=== PATIENT | female | born 2000 | race Caucasian/White ===

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

== ENCOUNTER → 2020-12-15 | Outpatient (CLI) | payer OTHER ==
--- NOTE | 2020-12-16 08:18 | US ---
EXAMINATION TYPE: Transabdominal DATE OF EXAM: 12/15/2020 3:51 PM COMPARISON: NONE CLINICAL HISTORY: Z36 confirm dates. dates EXAM PERFORMED: Transabdominal (TA) EXAM MEASUREMENTS: GESTATIONAL AGE / DATING Physician Established: Not yet established Dates by LMP: (10 weeks/4 days) EDC: 07/09/2021 Dates by First Scan: No previous this is first scan Dates by Current Scan for: ( 9 weeks/3 days) EDC: 07/17/2021 MATERNAL ANATOMY Uterus: 11.0 x 9.2 x 6.2 cm Right Ovary: 3.4 x 1.8 x 1.3 cm Left Ovary: 3.8 x 2.4 x 1.8 cm Post CDS / Adnexa: no free fluid Presence of free fluid: no Presence of corpus luteal cyst: left ovary = 1.9 x 1.8 x 1.5 cm Presence of subchorionic bleed: no GESTATION / SURVEY CRL: 2.6 cm (9 weeks/3 days) MSD: seen, not measured Yolk Sac (normal less than 6mm): 3.9 mm Heart Rate: 166 bpm Rhythm: Normal IUP: Viable IUP Age Appropriate Anatomy Cord Insertion: Visualized Limbs: Visualized Date of LMP: 10/02/2020, Beta HcG (if available): Not available at this time Single live IUP measuring 9 weeks 3 days. IMPRESSION: Single viable intrauterine corresponding to ultrasound age 9 weeks 3 days with estimated da te of delivery 07/17/2021
== END | disposition home or self-care (01) ==
LOC: RADUSWWP 15:28
PROVIDERS: ATTEND Obstetrics & Gynecology
DX: Z36.89 Encounter for other specified antenatal screening (principal); Z3A.09 9 weeks gestation of pregnancy
CPT/HCPCS: 76801

== ENCOUNTER 2021-07-10 06:00 | Inpatient (IN) | payer OTHER ==
--- NOTE | 2021-07-09 10:59 | P.HPOB ---
History of Present Illness H&P Date: 07/09/21 Chief Complaint: Requested induction of labor. This patient is a pleasant 20 yr female EDC 07/17/2021 estimated gestation age 39 0/7 weeks who presents to L&D for requested induction of labor. She has a brother with a cardiac defect, therefore she had a Level III ultrasound and cardiac echo (normal). Kierra is uncomfortable and requesting induction of labor at this time. Review of Systems Genitourinary: Reports Menstruation: Reports amenorrhea Past Medical History Past Medical History: No Reported History History of Any Multi-Drug Resistant Organisms: None Reported Additional Past Surgical History / Comment(s): Patient had a cyst removed from the lower part of her spine in 2017 Past Anesthesia/Blood Transfusion Reactions: No Reported Reaction Past Psychological History: No Psychological Hx Reported Smoking Status: Former smoker Past Alcohol Use History: None Reported Past Drug Use History: None Reported - Past Family History Mother Family Medical History: No Reported History Medications and Allergies Home Medications Medication Instructions Recorded Confirmed Type Ibuprofen [Motrin] 600 mg PO Q6HR PRN #40 tab 11/18/19 Rx Allergies Allergy/AdvReac Type Severity Reaction Status Date / Time codeine Allergy Rash/Hives Verified 11/17/19 06:04 Exam - OBG Physical Exam Abdomen: bowel sounds normal, no diffuse tenderness, no bruit present, no gua rding noted, no hepatomegaly, no splenomegaly, no mass Vulva: both: normal Vagina: normal moisture, no discharge Cervix: no lesion (Cervix in office 2cm/uneffaced. ), no discharge Uterus: enlarged (Fundal height is 38cm) Results Labs: A positive, Rubella Immune, RPR-HIV-Hep B negative, GBS negative, cardiac echo normal. Glucola 100 Assessment and Plan Assessment: This is a pleasant 20 yr female 30 0/7 wks who presents requesting induction of labor. Plan is induction of labor and anticipate normal vaginal delivery. (1) 39 weeks gestation of Status: Acute Code(s): Z3A.39 - 39 WEEKS GESTATION OF SNOMED Code(s): 56008114 (2) Elective induction of labor planned Status: Acute Code(s): SEE9518 - SNOMED Code(s): 016349608
[2021-07-10] MEDS ORDERED: OXYTOCIN 30 UNITS/500 ML NS 30 UNIT in SALINE 1 500ML.BAG IV SCH ×2 (06:17→09:25)
[2021-07-10] MEDS ORDERED: OXYTOCIN 10 UNIT/ML 1 ML VIAL IM PRN (06:17)
[2021-07-10] MEDS ORDERED: METHYLERGONOVINE 0.2 MG/ML 1 ML AMP IM PRN (06:17)
[2021-07-10] MEDS ORDERED: CARBOPROST TROMETHAMINE 250 MCG/ML 1 ML AMP IM PRN (06:17)
[2021-07-10] MEDS ORDERED: LIDOCAINE 1% (PF) 10 MG/ML (30 ML SDV) SQ PRN (06:17)
[2021-07-10] MEDS ORDERED: TERBUTALINE 1 MG/ML VIAL SQ PRN (06:17)
[2021-07-10] MEDS: LACTATED RINGERS 1,000 ML IV SCH ×2 (06:25→08:30)
[2021-07-10 06:28] LABS: Basophils # (A) 0.1 k/uL (0-0.2); Basophils % (A) 1 %; Eosinophils # (A) 0.1 k/uL (0-0.7); Eosinophils % (A) 1 %; HCT 36.9 % (34.0-46.0); Lymphocytes # (A) 2.1 k/uL (1.0-4.8); Lymphocytes % (A) 21 %; MCH 28.5 pg (25.0-35.0); MCHC 32.6 g/dL (31.0-37.0); MCV 87.6 fL (80.0-100.0); Mean Platelet Volume 8.4; Monocytes # (A) 0.6 k/uL (0-1.0); Monocytes % (A) 6 %; Neutrophils # (A) 7.1 k/uL (1.3-7.7); Neutrophils % (A) 70 %; Platelet Count 329 k/uL (150-450); RBC 4.21 m/uL (3.80-5.40); RDW 13.9 % (11.5-15.5); WBC 10.2 k/uL (4.0-11.0)
[2021-07-10] MEDS ORDERED: fentaNYL (PF) 50 MCG/ML 5 ML AMP ONE (08:04)
[2021-07-10] MEDS ORDERED: ROPIVACAINE 5MG/ML 20ML VIAL ONE (08:04)
[2021-07-10] MEDS ORDERED: SODIUM CHLORIDE 0.9% 100 ML BAG ONE (08:04)
[2021-07-10] MEDS ORDERED: LANOLIN CREAM 5 GM TUBE TOPICAL PRN (09:25)
[2021-07-10] MEDS ORDERED: BENZOCAINE/MENTHOL SPRAY 1 GM/SPRAY AEROSOL TOPICAL PRN (09:25)
[2021-07-10] MEDS ORDERED: ZOLPIDEM 5 MG TAB PO PRN (09:25)
[2021-07-10] MEDS ORDERED: ACETAMINOPHEN TAB 325 MG TAB PO PRN (09:25)
[2021-07-10] MEDS ORDERED: diphenhydrAMINE 25 MG CAP PO PRN (09:25)
[2021-07-10] MEDS ORDERED: diphenhydrAMINE 50 MG/ML 1 ML VIAL IVP PRN (09:25)
[2021-07-10] MEDS ORDERED: bisacodyL 10 MG SUPP RECTAL PRN (09:25)
[2021-07-10] MEDS ORDERED: HYDROCORTISONE 2.5% RECTAL CREAM 30 GM TUBE RECTAL PRN (09:25)
[2021-07-10] MEDS ORDERED: SIMETHICONE 80 MG CHEWABLE PO PRN (09:25)
[2021-07-10] MEDS: SENNOSIDES-DOCUSATE SODIUM 1 EACH TAB PO SCH ×2 (09:41→20:28)
--- NOTE | 2021-07-10 12:20 | P.PROBDLV ---
Vaginal Delivery Note - . Vaginal Delivery Note: Normal vaginal delivery viable male Apgars 9 and 9 delivery time was 0913 hrs. Please see dictated H&P for intimate details of this patient's admission. In brief summary this is a pleasant 20-year-old 3 para 1 female 39-0/7 weeks gestation initially admitted to labor and delivery for induction of labor however was found to be probably in early labor. On admission she is 4 cm dilated has artificial rupture membranes for clear fluid. Labor is augmented with Pitocin and she does get an epidural for pain control. Patient quickly progresses and gets to complete. She pushes the head to the perineum the posterior perineum is supported and we have controlled delivery of the 's head over the intact perineum mouth and nares are bulb suctioned. There is a loose nuchal cord which is reduced. With gentle downward traction we then have deliver the anterior and posterior shoulder and rest this infant's body. This is a vigorous viable male infant Apgars are 9 and 9 delivery time was 0913 hrs. After delivery of the the umbilical cord is immediately cut clamped and cut due to history of jaundice with her first child. This done the baby is laid on the mother's abdomen. The placenta is then spontaneously delivered intact. Estimated blood loss is 100 mL. Small first-degree posterior laceration repaired with 3-0 Vicryl usual fashion. Excellent reapproximation is noted. All counts are correct 3. There are no complications. and mother stable birthing suite.
[2021-07-10] MEDS: IBUPROFEN 600 MG TAB PO PRN ×2 (13:27→20:28)
--- NOTE | 2021-07-11 06:17 | P.PNOBGVD ---
Subjective - Subjective Patient reports: Reports appetite normal, Reports voiding normally, Reports pain well controlled, Reports ambulating normally : doing well Objective - Latest Vital Signs Latest vital signs: Vital Signs Temp Pulse Resp BP Pulse Ox 07/11/21 03:58 97.9 F 83 17 116/78 99 07/11/21 00:00 97.5 F L 72 16 111/73 99 07/10/21 19:50 98.0 F 92 16 108/71 98 07/10/21 17:00 98.1 F 68 16 107/63 07/10/21 11:23 97.2 F L 79 16 119/63 07/10/21 10:53 97.6 F 82 16 113/77 07/10/21 10:23 97.3 F L 80 16 117/75 07/10/21 10:08 97.0 F L 75 16 117/74 07/10/21 09:53 97.5 F L 93 16 128/77 07/10/21 09:38 97.5 F L 84 16 126/75 07/10/21 09:23 84 16 123/73 Intake and Output 07/10/21 07/10/21 07/11/21 14:59 22:59 06:59 Intake Total 5.7 720 Output Total 320 Balance -314.3 720 Intake: Intake, IV Titration 5.7 Amount Oxytocin 30 Units/500 ml 5.7 Ns 30 unit In Saline 1 500ml.bag @ Per Protocol IV .Q0M [facility] Rx#:[id number] Oral 720 Output: Output, Quantitative 320 Blood Loss Other: # Voids 1 - Exam Lungs: bilateral: normal Chest: Normal S1, Normal S2 Extremities: Present: normal Abdomen: Present: normal appearance, soft Uterus: Present: normal, firm Assessment and Plan Assessment: day #1. Patient is resting without complaints and wishes to go home. Vital signs are stable she's afebrile. Uterus is firm nontender and she is having normal lochia. My impression this is a normal course. Plan i s to continue routine care discharge home later today. (1) 39 weeks gestation of Current Visit: No Status: Acute Code(s): Z3A.39 - 39 WEEKS GESTATION OF SNOMED Code(s): 30866099 (2) Elective induction of labor planned Current Visit: No Status: Acute Code(s): JIH0215 - SNOMED Code(s): 821019186
--- NOTE | 2021-07-11 06:21 | P.DS ---
Providers Date of admission: 07/10/21 06:08 Expected date of discharge: 07/11/21 Attending physician: Raffi Byrd Primary care physician: Stated None - Discharge Diagnosis(es) (1) 39 weeks gestation of Current Visit: No Status: Acute (2) Elective induction of labor planned Current Visit: No Status: Acute Hospital Course: Please see dictated H&P and delivery note on this patient's admission. In brief summary this is a pleasant 20-year-old 3 para 1 female 39-0/7 weeks gestation admitted to labor and delivery for requested induction of labor and thought to be in early labor. Patient quickly goes on to have a vaginal delivery viable male . Please see dictated delivery note. day 1 patient is doing well wishes to go home. Patient's felt be stable for discharge home follow up with me in 6 weeks. Procedures: Augmentation of labor and normal vaginal delivery Patient Condition at Discharge: Good Plan - Discharge Summary Discharge Rx Participant: No New Discharge Prescriptions: New Ibuprofen [Motrin] 600 mg PO Q6HR PRN #30 tab PRN Reason: Pain Discharge Medication List Ibuprofen [Motrin] 600 mg PO Q6HR PRN #30 tab 07/11/21 [Rx] Follow up Appointment(s)/Referral(s): Raffi Byrd MD [STAFF PHYSICIAN] - 08/20/21 11:15 am Patient Instructions/Handouts: Vaginal Delivery (DC) Activity/Diet/Wound Care/Special Instructions: No intercourse or anything per vagina for 6 weeks. Please call if any fever, chills, excessive vaginal bleeding, and/or abdominal pain. Discharge Disposition: HOME SELF-CARE
[2021-07-11] MEDS: SENNOSIDES-DOCUSATE SODIUM 1 EACH TAB PO SCH ×2 (07:38→19:28)
[2021-07-11] MEDS: IBUPROFEN 600 MG TAB PO PRN ×2 (07:38→19:28)
[2021-07-11 08:03] LABS: Basophils # (A) 0.1 k/uL (0-0.2); Basophils % (A) 1 %; Eosinophils # (A) 0.1 k/uL (0-0.7); Eosinophils % (A) 2 %; HCT 29.5 % (34.0-46.0); Lymphocytes # (A) 2.5 k/uL (1.0-4.8); Lymphocytes % (A) 28 %; MCHC 32.8 g/dL (31.0-37.0); MCV 88.5 fL (80.0-100.0); Mean Platelet Volume 8.2; Monocytes # (A) 0.5 k/uL (0-1.0); Monocytes % (A) 6 %; Neutrophils # (A) 5.6 k/uL (1.3-7.7); Neutrophils % (A) 63 %; Platelet Count 245 k/uL (150-450); RBC 3.34 m/uL (3.80-5.40); RDW 14.1 % (11.5-15.5)
[2021-07-11 08:08] LABS: HGB 9.7 gm/dL (11.4-16.0)
--- NOTE | 2021-07-12 06:33 | P.PNOBGVD ---
Subjective - Subjective Patient reports: Reports appetite normal, Reports voiding normally, Reports pain well controlled, Reports ambulating normally : doing well Objective - Latest Vital Signs Latest vital signs: Vital Signs Temp Pulse Resp BP Pulse Ox 07/12/21 00:00 98.0 F 70 16 110/78 07/11/21 20:00 98.2 F 77 16 120/80 07/11/21 16:00 98.5 F 69 18 131/83 99 07/11/21 08:00 98.1 F 69 18 112/75 99 - Exam Lungs: bilateral: normal Chest: Normal S1, Normal S2 Extremities: Present: normal Abdomen: Present: normal appearance, soft Uterus: Present: normal, firm - Labs Labs: Abnormal Lab Results - Last 24 Hours (Table) 07/11/21 Range/Units 07:26 RBC 3.34 L (3.80-5.40) m/uL Hgb 9.7 L D (11.4-16.0) gm/dL Hct 29.5 L (34.0-46.0) % Assessment and Plan Assessment: day #2. Patient wanted to go home yesterday however her baby needed phototherapy therefore she stayed overnight. She continues to feel well plan today is to continue routine care and discharge home later this morning. (1) 39 weeks gestation of Current Visit: No Status: Acute Code(s): Z3A.39 - 39 WEEKS GESTATION OF SNOMED Code(s): 78253528 (2) Elective induction of labor planned Current Visit: No Status: Acute Code(s): [id number] - SNOMED Code(s): 969488888
[2021-07-12 07:55] VITALS: BP 122/79; PULSE 80; RESP 17; TEMP 98
[2021-07-12] MEDS: SENNOSIDES-DOCUSATE SODIUM 1 EACH TAB PO SCH (10:29)
== END 2021-07-12 15:15 | disposition home or self-care (01) | DRG 807 ==
LOC: 4FBP 06:08
PROVIDERS: ADMIT Obstetrics & Gynecology; ATTEND Obstetrics & Gynecology
PROC: 3E033VJ Introduction of Other Hormone into Peripheral Vein, Percutaneous Approach (ICD-10-PCS; principal; 2021-07-10)
PROC: 10907ZC Drainage of Amniotic Fluid, Therapeutic from Products of Conception, Via Natural or Artificial Opening (ICD-10-PCS; principal; 2021-07-10)
PROC: 10E0XZZ Delivery of Products of Conception, External Approach (ICD-10-PCS; principal; 2021-07-10)
PROC: 0HQ9XZZ Repair Perineum Skin, External Approach (ICD-10-PCS; principal; 2021-07-10)
DX: O69.81X0 Labor and delivery complicated by cord around neck, without compression, not applicable or unspecified (principal); Z37.0 Single live birth; O70.0 First degree perineal laceration during delivery; Z3A.39 39 weeks gestation of pregnancy; Z87.891 Personal history of nicotine dependence; Z88.5 Allergy status to narcotic agent
CPT/HCPCS: 85025; 86850; 86900; 86901

== ENCOUNTER → 2022-09-06 | Outpatient (CLI) | payer OTHER ==
--- NOTE | 2022-09-06 23:12 | US ---
EXAMINATION TYPE: Transabdominal DATE OF EXAM: 09/06/2022 3:51 PM COMPARISON: NONE CLINICAL INDICATION: Female, 21 years old with history of Z36.89 ENCOUNTER FOR OTHER SPECIFIED ANTENA BRETT SCREENING; early OB EXAM PERFORMED: OBTA EXAM MEASUREMENTS: GESTATIONAL AGE / DATING Physician Established: Not yet established Dates by LMP: (10 weeks/0 days) EDC: 04/04/2023 Dates by First Scan: No previous this is first scan Dates by Current Scan for: ( 9 weeks/0 days) EDC: 04/11/2023 MATERNAL ANATOMY Uterus: 11.0 x 9.4 x 7.0cm Right Ovary: 3.2 x 2.7 x 1.6cm Left Ovary: 3.5 x 2.5 x 1.7cm Post CDS / Adnexa: wnl Presence of free fluid: no Presence of corpus luteal cyst: 1.7cm left ovary Presence of subchorionic bleed: no GESTATION / SURVEY CRL: 2.4cm ( 9 weeks/0 days) MSD: wnl Yolk Sac (normal less than 6mm): 0.4cm Heart Rate: 170 bpm Rhythm: Normal IUP: Viable IUP Date of LMP: 06/28/2022 IMPRESSION: Viable intrauterine with ultrasound age 9 weeks 0 days.
== END | disposition home or self-care (01) ==
LOC: RADUSWWP 15:27
PROVIDERS: ATTEND Obstetrics & Gynecology
DX: Z36.89 Encounter for other specified antenatal screening (principal); Z3A.09 9 weeks gestation of pregnancy
CPT/HCPCS: 76801

== ENCOUNTER 2023-04-01 06:15 | Inpatient (IN) | payer OTHER ==
[2023-04-01] MEDS ORDERED: miSOPROStoL 200 MCG TAB PO PRN (06:53)
[2023-04-01] MEDS ORDERED: METHYLERGONOVINE 0.2 MG/ML 1 ML AMP IM PRN (06:53)
[2023-04-01] MEDS ORDERED: LIDOCAINE 0.5% (PF) 5 MG/ML (50 ML SDV) SQ PRN (06:53)
[2023-04-01] MEDS ORDERED: TERBUTALINE 1 MG/ML VIAL SQ PRN (06:53)
[2023-04-01] MEDS ORDERED: OXYTOCIN 30 UNITS/500 ML NS 30 UNIT in SALINE 1 500ML.BAG IV SCH ×2 (06:53→13:10)
[2023-04-01] MEDS ORDERED: TRANEXAMIC 1,000 MG/100ML-NACL 1,000 MG in EMPTY BAG 1 BAG IV PRN (06:53)
[2023-04-01] MEDS ORDERED: OXYTOCIN 10 UNIT/ML 1 ML VIAL IM PRN (06:53)
[2023-04-01] MEDS ORDERED: CARBOPROST TROMETHAMINE 250 MCG/ML 1 ML AMP IM PRN (06:53)
[2023-04-01] MEDS: LACTATED RINGERS 1,000 ML IV SCH ×2 (07:00→10:54)
[2023-04-01 07:12] LABS: Basophils % (A) 1 %; Eosinophils # (A) 0.1 k/uL (0-0.7); Eosinophils % (A) 1 %; HCT 31.8 % (34.0-46.0); HGB 10.8 gm/dL (11.4-16.0); Hypochromasia Slight; Lymphocytes # (A) 2.1 k/uL (1.0-4.8); Lymphocytes % (A) 29 %; MCH 27.2 pg (25.0-35.0); MCHC 33.9 g/dL (31.0-37.0); MCV 80.4 fL (80.0-100.0); Mean Platelet Volume 8.3; Monocytes # (A) 0.4 k/uL (0-1.0); Monocytes % (A) 6 %; Neutrophils # (A) 4.6 k/uL (1.3-7.7); Neutrophils % (A) 62 %; Platelet Count 286 k/uL (150-450); Poikilocytosis Slight; RBC 3.95 m/uL (3.80-5.40); WBC 7.4 k/uL (3.8-10.6)
--- NOTE | 2023-04-01 08:30 | P.HPOB ---
History of Present Illness H&P Date: 04/01/23 Chief Complaint: Requested induction of labor. This patient is a pleasant 22-year-old 4 para 2 female estimated date of confinement 04/04/2023 estimated gestational age 39-4/7 weeks who presents to labor and delivery for requested induction of labor. Patient's care is complicated by a family history of a cardiac defect in her brother therefore she is referred to maternal- medicine and had a normal cardiac echo. is otherwise been uncomplicated she is requesting delivery at this time. Review of Systems Genitourinary: Reports Menstruation: Reports amenorrhea Past Medical History Past Medical History: No Reported History History of Any Multi-Drug Resistant Organisms: None Reported Additional Past Surgical History / Comment(s): Patient had a cyst removed from the lower part of her spine in 2017 Past Anesthesia/Blood Transfusion Reactions: No Reported Reaction Past Psychological History: No Psychological Hx Reported Smoking Status: Never smoker Past Alcohol Use History: None Reported Past Drug Use History: None Reported - Past Family History Mother Family Medical History: Diabetes Mellitus Medications and Allergies Home Medications Medication Instructions Recorded Confirmed Type No Known Home Medications 04/01/23 04/01/23 History Allergies Allergy/AdvReac Type Severity Reaction Status Date / Time codeine Allergy Rash/Hives Verified 04/01/23 06:52 Exam Vital Signs Temp Pulse Resp BP Pulse Ox 04/01/23 06:51 98.7 F 96 18 134/75 100 Intake and Output 03/31/23 04/01/23 04/01/23 22:59 06:59 14:59 Other: Weight 89.358 kg - OBG Physical Exam Vulva: both: normal Vagina: normal moisture, no discharge Cervix: no lesion (Cervix is 3 and 50% effaced), no discharge Uterus: enlarged (Fundal height 39 cm) Results labs show she is A positive, rubella immune, RPR is nonreactive, hepatitis B and C are negative, HIV is nonreactive, group B strep was negative, Glucola was normal, most recent ultrasound shows 6 lbs. 9 oz. Result Diagrams: 04/01/23 06:58 Abnormal Lab Results - Last 24 Hours (Table) 04/01/23 Range/Units 06:58 Hgb 10.8 L (11.4-16.0) gm/dL Hct 31.8 L (34.0-46.0) % Assessment and Plan Assessment: This is a pleasant 22-year-old 3 para 2 female 39-4/7 weeks gestation who is admitted to labor and delivery for requested induction of labor. Plan is Pitocin induction of labor per protocol and anticipate vaginal delivery (1) 39 weeks gestation of Current Visit: No Status: Acute Code(s): Z3A.39 - 39 WEEKS GESTATION OF SNOMED Code(s): 86775778 (2) Elective induction of labor planned Current Visit: No Status: Acute Code(s): LEM4726 - SNOMED Code(s): 654403074
[2023-04-01] MEDS ORDERED: SODIUM CHLORIDE 0.9% 250 ML BAG ONE (10:35)
[2023-04-01] MEDS ORDERED: ROPIVACAINE 5 MG/ML 30 ML VIAL ONE (10:35)
[2023-04-01] MEDS ORDERED: fentaNYL (PF) 50 MCG/ML 5 ML AMP ONE (10:35)
[2023-04-01] MEDS ORDERED: HYDROCORTISONE 2.5% RECTAL CREAM 30 GM TUBE RECTAL PRN (13:10)
[2023-04-01] MEDS ORDERED: diphenhydrAMINE 50 MG/ML 1 ML VIAL IVP PRN (13:10)
[2023-04-01] MEDS ORDERED: BENZOCAINE/MENTHOL SPRAY 1 GM/SPRAY AEROSOL TOPICAL PRN (13:10)
[2023-04-01] MEDS ORDERED: bisacodyL 10 MG SUPP RECTAL PRN (13:10)
[2023-04-01] MEDS ORDERED: diphenhydrAMINE 25 MG CAP PO PRN (13:10)
[2023-04-01] MEDS ORDERED: ZOLPIDEM 5 MG TAB PO PRN (13:10)
[2023-04-01] MEDS ORDERED: SIMETHICONE 80 MG CHEWABLE PO PRN (13:10)
[2023-04-01] MEDS ORDERED: LANOLIN CREAM 5 GM TUBE TOPICAL PRN (13:10)
[2023-04-01] MEDS: IBUPROFEN 600 MG TAB PO PRN ×2 (13:34→22:11)
--- NOTE | 2023-04-01 17:22 | P.PROBDLV ---
Vaginal Delivery Note - . Vaginal Delivery Note: Normal vaginal delivery viable male infant Apgars 9 and 9 delivery time is 1330 hrs. Please see dictated H&P for intimate details of this patient's admission. Brief summary is a pleasant 22-year-old 4 para 2 female 39-4/7 weeks gestation admitted to labor and delivery for requested induction of labor. On admission she is 2-3 cm dilated has artificial rupture membranes for clear fluid. Labor is induced with Pitocin per protocol. Patient's labor progresses normally and she does get an epidural for pain control. Patient then gets to complete pushes the head to the perineum. The posterior perineum is supported and we have controlled delivery of infant's head over the intact perineum. Mouth and nares are bulb suctioned. Infant is straight occiput anterior presentation. There is no evidence of a nuchal cord. With gentle downward traction we then have deliver the anterior shoulder and posterior shoulder and rest this 's body. This is a vigorous viable male infant Apgars are 9 and 9 delivery time was 1303 hrs. After delivery of the infant the umbilical cord is allowed to pulse named doubly clamped and cut. The placenta is then spontaneously delivered intact. There are no lacerations no repairs required. All counts are correct 3. and mother stable delivery room.
[2023-04-01] MEDS: SENNOSIDES-DOCUSATE SODIUM 1 EACH TAB PO SCH (22:12)
[2023-04-02] MEDS: ACETAMINOPHEN TAB 325 MG TAB PO PRN ×2 (03:07→08:53)
[2023-04-02 03:36] VITALS: RESP 16
[2023-04-02] MEDS: IBUPROFEN 600 MG TAB PO PRN (04:42)
--- NOTE | 2023-04-02 06:47 | P.PNOBGVD ---
Subjective - Subjective Patient reports: Reports appetite normal, Reports voiding normally, Reports pain well controlled, Reports ambulating normally : doing well Objective - Latest Vital Signs Latest vital signs: Vital Signs Temp Pulse Resp BP Pulse Ox 04/02/23 00:00 98.0 F 97 16 126/78 04/01/23 19:35 98.0 F 97 15 125/81 100 04/01/23 15:59 98.6 F 96 18 131/78 04/01/23 15:10 98.6 F 108 H 18 122/64 97 04/01/23 14:40 98.3 F 96 18 131/68 04/01/23 14:10 97.9 F 90 18 120/67 04/01/23 13:55 97.4 F L 81 18 117/63 99 04/01/23 13:39 97.6 F 82 18 111/59 04/01/23 13:24 98.1 F 97 18 122/63 97 04/01/23 13:10 99.8 F H 97 18 134/61 04/01/23 06:51 98.7 F 96 18 134/75 100 Intake and Output 04/01/23 04/01/23 04/02/23 14:59 22:59 06:59 Intake Total 10.733 960 Output Total 474 Balance 10.733 486 Intake: Intake, IV Titration 10.733 Amount Oxytocin 30 Units/500 ml 10.733 Ns 30 unit In Saline 1 500ml.bag @ Per Protocol IV .Q0M [facility] Rx#:[id number] Oral 960 Output: Estimated Blood Loss 474 Other: Voiding Method Toilet Toilet # Voids 1 2 - Exam Lungs: bilateral: normal Chest: Normal S1, Normal S2 Extremities: Present: normal Abdomen: Present: normal appearance, soft Uterus: Present: normal, firm - Labs Labs: Abnormal Lab Results - Last 24 Hours (Table) 04/01/23 Range/Units 06:58 Hgb 10.8 L (11.4-16.0) gm/dL Hct 31.8 L (34.0-46.0) % Assessment and Plan Assessment: day #1. Patient is resting without complaints and wishes to go home. Vital signs are stable she is afebrile. Uterus is firm nontender and she is having normal lochia. CBC is pending at this time. My impression is that this is a normal course. Plan is to continue routine care, check CBC, discharge home later today. (1) 39 weeks gestation of Current Visit: No Status: Acute Code(s): Z3A.39 - 39 WEEKS GESTATION OF SNOMED Code(s): 58207396 (2) Elective induction of labor planned Current Visit: No Status: Acute Code(s): GVJ5844 - SNOMED Code(s): 960196208
--- NOTE | 2023-04-02 06:50 | P.DS ---
Providers Date of admission: 04/01/23 06:38 Expected date of discharge: 04/02/23 Attending physician: Raffi Byrd Primary care physician: Stated None - Discharge Diagnosis(es) (1) 39 weeks gestation of Current Visit: No Status: Acute (2) Elective induction of labor planned Current Visit: No Status: Acute Hospital Course: Please see dictated H&P for intimate details of this patient's admission. In brief summary this is a pleasant 22-year-old 4 para 2 female 39-4/7 weeks gestation admitted to labor and delivery for requested induction of labor. Patient is admitted and she has uncomplicated induction of labor quickly goes on have a vaginal delivery viable male . Please see dictated delivery note. day #1 patient's felt to be stable for discharge home follow up with me in 6 weeks. Procedures: Induction of labor and normal vaginal delivery Patient Condition at Discharge: Good Plan - Discharge Summary New Discharge Prescriptions: New Ibuprofen [Motrin] 600 mg PO Q6HR PRN #30 tab PRN Reason: Mild Pain (Scale 1 To 3) Discharge Medication List Ibuprofen [Motrin] 600 mg PO Q6HR PRN #30 tab 04/02/23 [Rx] Follow up Appointment(s)/Referral(s): Raffi Byrd MD [STAFF PHYSICIAN] - 05/14/23 10:30 am Patient Instructions/Handouts: Vaginal Delivery (DC) Activity/Diet/Wound Care/Special Instructions: No intercourse or anything per vagina for 6 weeks. Please call if any fever, chills, excessive vaginal bleeding, and/or abdominal pain. Discharge Disposition: HOME SELF-CARE
[2023-04-02 07:53] LABS: Basophils % (A) 0 %; Eosinophils # (A) 0.1 k/uL (0-0.7); Eosinophils % (A) 2 %; HCT 26.2 % (34.0-46.0); Hypochromasia Slight; Lymphocytes # (A) 2.4 k/uL (1.0-4.8); Lymphocytes % (A) 33 %; MCH 27.4 pg (25.0-35.0); MCHC 33.5 g/dL (31.0-37.0); MCV 81.9 fL (80.0-100.0); Mean Platelet Volume 8.8; Monocytes # (A) 0.4 k/uL (0-1.0); Monocytes % (A) 6 %; Neutrophils # (A) 4.1 k/uL (1.3-7.7); Neutrophils % (A) 57 %; Platelet Count 214 k/uL (150-450); Poikilocytosis Slight; RDW 14.9 % (11.5-15.5); WBC 7.2 k/uL (3.8-10.6)
[2023-04-02 08:06] LABS: HGB 8.8 gm/dL (11.4-16.0)
[2023-04-02] MEDS: SENNOSIDES-DOCUSATE SODIUM 1 EACH TAB PO SCH (08:54)
[2023-04-02 11:57] VITALS: BP 138/75; PULSE 83; TEMP 97.4
== END 2023-04-02 14:50 | disposition home or self-care (01) | DRG 560 ==
LOC: 4FBP 06:38
PROVIDERS: ADMIT Obstetrics & Gynecology; ATTEND Obstetrics & Gynecology
PROC: 10E0XZZ Delivery of Products of Conception, External Approach (ICD-10-PCS; principal; 2023-04-01)
PROC: 10907ZC Drainage of Amniotic Fluid, Therapeutic from Products of Conception, Via Natural or Artificial Opening (ICD-10-PCS; 2023-04-01)
PROC: 3E033VJ Introduction of Other Hormone into Peripheral Vein, Percutaneous Approach (ICD-10-PCS; 2023-04-01)
DX: O80 Encounter for full-term uncomplicated delivery (principal); Z83.3 Family history of diabetes mellitus; Z3A.39 39 weeks gestation of pregnancy; Z37.0 Single live birth
CPT/HCPCS: 85025; 86850; 86900; 86901

== ENCOUNTER 2023-11-17 14:53 | Emergency (ER) | payer OTHER ==
--- NOTE | 2023-11-17 15:20 | ED ---
Abdominal Pain HPI <Marine Whimtore - Last Filed: 11/17/23 15:18> <iLane Jones - Last Filed: 11/18/23 21:05> - General Stated Complaint: 9wks preg, abd pain Time Seen by Provider: 11/17/23 15:18 - History of Present Illness Initial Comments: Quick [id number] female at approximately 9 weeks gestation presenting to the ER with chief complaint of abdominal pain x 1 week. States the pain is nonspecific and intermittent. States she was having some light vaginal bleeding 2 days ago, but states this resolved and is not currently having bleeding. States she is also currently having chest pain and heart palpitations. (Marine Del Rio) 23-year-old female at approximately 9 weeks gestation with abdominal pain for 1 week, she states that she has also been experiencing intermittent vaginal bleeding but is currently denying vaginal bleeding. Patient states that over the last 2 days she has been experiencing heart palpitations and chest pain. States that this chest pain is nonradiating and is associated with a heart fluttering sensation in her chest. (Liane Jones) - Related Data Previous Rx's Medication Instructions Recorded Ibuprofen [Motrin] 600 mg PO Q6HR PRN #30 tab 04/02/23 Allergies Allergy/AdvReac Type Severity Reaction Status Date / Time codeine Allergy Rash/Hives Verified 11/17/23 15:31 Review of Systems ROS Other: All systems not noted in ROS Statement are negative. <Marine Whitmore - Last Filed: 11/17/23 15:18> ROS Other: All systems not noted in ROS Statement are negative. <Liane Jones - Last Filed: 11/18/23 21:05> ROS Statement: Those systems with pertinent positive or pertinent negative responses have been documented in the HPI. Past Medical History Past Medical History: No Reported History History of Any Multi-Drug Resistant Organisms: None Reported Additional Past Surgical History / Comment(s): Patient had a cyst removed from the lower part of her spine in 2017 Past Anesthesia/Blood Transfusion Reactions: No Reported Reaction Past Psychological History: No Psychological Hx Reported Smoking Status: Never smoker Past Alcohol Use History: None Reported Past Drug Use History: None Reported - Past Family History Mother Family Medical History: Diabetes Mellitus <Marine Whitmore - Last Filed: 11/17/23 15:18> General Exam <Marine Whitmore - Last Filed: 11/17/23 15:18> General appearance: alert, in no apparent distress Head exam: Present: atraumatic, normocephalic, normal inspection Eye exam: Present: normal appearance, PERRL, EOMI. Absent: scleral icterus, conjunctival injection, periorbital swelling ENT exam: Present: normal exam, mucous membranes moist Neck exam: Present: normal inspection. Absent: tenderness, meningismus, lymphadenopathy Respiratory exam: Present: normal lung sounds bilaterally. Absent: respiratory distress, wheezes, rales, rhonchi, stridor Cardiovascular Exam: Present: regular rate, normal rhythm, normal heart sounds. Absent: systolic murmur, diastolic murmur, rubs, gallop, clicks GI/Abdominal exam: Present: soft, normal bowel sounds. Absent: distended, tenderness, guarding, rebound, rigid Extremities exam: Present: normal inspection, full ROM, normal capillary refill. Absent: tenderness, pedal edema, joint swelling, calf tenderness Back exam: Present: normal inspection Neurological exam: Present: alert, oriented X3, CN II-XII intact Psychiatric exam: Present: normal affect, normal mood Skin exam: Present: warm, dry, intact, normal color. Absent: rash <Liane Jones - Last Filed: 11/18/23 21:05> - General Exam Comments Initial Comments: Visual Physical Exam General: Well-appearing, nontoxic, no acute distress. Head: Normocephalic, atraumatic Eyes: PERRLA, EOMI ENT: Airway patent Chest: Nonlabored breathing Skin: No visual rash, normal skin tone Neuro: Alert and oriented 3 Musculoskeletal: No gross abnormalities (Marine Whitmore) Course Vital Signs 11/17/23 11/17/23 11/17/23 15:26 18:28 19:52 Temperature 99.3 F Pulse Rate 91 74 86 Respiratory 18 16 18 Rate Blood Pressure 120/74 122/71 125/70 O2 Sat by Pulse 100 98 Oximetry Medical Decision Making <Marine Whitmore - Last Filed: 11/17/23 15:18> - Lab Data Result diagrams: 11/17/23 17:26 11/17/23 17:26 <Liane Jones - Last Filed: 11/18/23 21:05> - Medical Decision Making I completed the quick note portion of this chart signed Marine Whitmore PA-C (Marine Whitmore) Was pt. sent in by a medical professional or institution (, OFELIA, RECOOPERER, urgent care, hospital, or halfway...) When possible be specific @ -No Did you speak to anyone other than the patient for history (EMS, parent, family, police, friend...)? What history was obtained from this source @ -No Did you review nursing and triage notes (agree or disagree)? Why? @ -I reviewed and agree with nursing and triage notes Were old charts reviewed (outside hosp., previous admission, EMS record, old EKG, old radiological studies, urgent care reports/EKG's, halfway records)? Report findings @ -No old charts were reviewed Differential Diagnosis (chest pain, altered mental status, abdominal pain women, abdominal pain men, vaginal bleeding, weakness, fever, dyspnea, syncope, headache, dizziness, GI bleed, back pain, seizure, CVA, palpatations, mental health, musculoskeletal)? @ -Differential Vaginal Bleeding: Spontaneous , threatened , molar , ectopic , bloody show, incompetent cervix, abruptioplacenta, placenta previa, uterine rupture, dysfunctional uterine bleeding, hemorrhage, uterine fibroids, this is not meant to be an all-inclusive list. EKG interpreted by me (3pts min.). @ -completed at 1612, sinus rhythm, ventricular rate 78, ID interval 147, QTc 426. No acute signs of ischemia. X-rays interpreted by me (1pt min.). @ -chest x-ray reveals no acute cardiopulmonary process or disease. CT interpreted by me (1pt min.). @ -None done U/S interpreted by me (1pt. min.). @ -Abdominal ultrasound reveals a single viable intrauterine with a heart rate of 146 bpm estimated to be 7 weeks 1 days gestation. There is a small subchorionic bleed. What testing was considered but not performed or refused? (CT, X-rays, U/S, labs)? Why? @ -None What meds were considered but not given or refused? Why? @ -None Did you discuss the management of the patient with other professionals (professionals i.e. , OFELIA, RECOOPERER, lab, RT, psych nurse, social sciences chair, child life assistant, teacher, correction officer head, vocational case manager)? Give summary @ -No Was smoking cessation discussed for >3mins.? @ -No Was critical care preformed (if so, how long)? @ -No Were there social determinants of health that impacted care today? How? (Ho melessness, low income, unemployed, alcoholism, drug addiction, transportation, low edu. Level, literacy, decrease access to med. care, usp, rehab)? @ -No Was there de-escalation of care discussed even if they declined (Discuss DNR or withdrawal of care, Hospice)? DNR status @ -No What co-morbidities impacted this encounter? (DM, HTN, Smoking, COPD, CAD, Cancer, CVA, ARF, Chemo, Hep., AIDS, mental health diagnosis, sleep apnea, morbid obesity)? @ -None Was patient admitted / discharged? Hospital course, mention meds given and route, prescriptions, significant lab abnormalities, going to OR and other pertinent info. @ -Discharged. 23-year-old female with chest pain, vaginal bleeding during . Patient was originally evaluated as a quick note where labs were in addition to chest x-ray and ultrasound. On my evaluation of the patient, she is currently asymptomatic denying chest pain, chest pressure, abdominal pain or vaginal bleeding. CBC, CMP, coagulation profile grossly unremarkable. h[place] quant 94024, nonelevated less than 0.012. Urinalysis no signs of infection, epithelial cells consistent with contaminated specimen. Ultrasound reveals a viable intrauterine measuring 7 weeks 1 day gestation with a heart rate of 146. Patient's blood type is positive and does not require RhoGAM. Recommend the patient follows up as scheduled with her OB for further evaluation. All questions answered at bedside and strict return parameters luis miguel with the patient she is verbalized understanding. Case discussed with Dr. Brunson Undiagnosed new problem with uncertain prognosis? @ -No Drug Therapy requiring intensive monitoring for toxicity (Heparin, Nitro, Insulin, Cardizem)? @ -No Were any procedures done? @ -No Diagnosis/symptom? @ -subchorionic hemorrhage, vaginal bleeding during Acute, or Chronic, or Acute on Chronic? @ -Acute Uncomplicated (without systemic symptoms) or Complicated (systemic symptoms)? @ -uncomplicated Side effects of treatment? @ -No Exacerbation, Progression, or Severe Exacerbation? @ -No Poses a threat to life or bodily function? How? (Chest pain, USA, IA, pneumonia, PE, COPD, DKA, ARF, appy, cholecystitis, CVA, Diverticulitis, Homicidal, Suicidal, threat to staff... and all critical care pts) @ -No (Liane Jones) - Lab Data Lab Results 11/17/23 11/17/23 11/17/23 Range/Units 17:15 17:26 17:26 WBC 8.8 (3.8-10.6) k/uL RBC 4.15 (3.80-5.40) m/uL Hgb 12.2 (11.4-16.0) gm/dL Hct 35.5 (34.0-46.0) % MCV 85.7 (80.0-100.0) fL MCH 29.3 (25.0-35.0) pg MCHC 34.2 (31.0-37.0) g/dL RDW 14.7 (11.5-15.5) % Plt Count 368 (150-450) k/uL MPV 7.3 Neutrophils % 66 % Lymphocytes % 24 % Monocytes % 4 % Eosinophils % 3 % Basophils % 1 % Neutrophils # 5.9 (1.3-7.7) k/uL Lymphocytes # 2.1 (1.0-4.8) k/uL Monocytes # 0.4 (0-1.0) k/uL Eosinophils # 0.3 (0-0.7) k/uL Basophils # 0.1 (0-0.2) k/uL PT (10.0-12.5) sec INR (<1.2) APTT (22.0-30.0) sec Sodium 138 (137-145) mmol/L Potassium 3.8 (3.5-5.1) mmol/L Chloride 107 (98-107) mmol/L Carbon Dioxide 21 L (22-30) mmol/L Anion Gap 10 mmol/L BUN 9 (7-17) mg/dL Creatinine 0.38 L (0.52-1.04) mg/dL Est GFR (CKD-EPI)AfAm >90 (>60 ml/min/1.73 sqM) Est GFR (CKD-EPI)NonAf >90 (>60 ml/min/1.73 sqM) Glucose 83 (74-99) mg/dL Plasma Lactic Acid Christiano (0.7-2.0) mmol/L Calcium 9.3 (8.4-10.2) mg/dL Total Bilirubin 0.6 (0.2-1.3) mg/dL AST 24 (14-36) U/L ALT 13 (4-34) U/L Alkaline Phosphatase 51 (38-126) U/L Troponin I (0.000-0.034) ng/mL Total Protein 7.2 (6.3-8.2) g/dL Albumin 4.5 (3.5-5.0) g/dL Lipase 62 (23-300) U/L HCG, Quant 00397.7 mIU/mL Urine Color Urine Appearance (Clear) Urine pH (5.0-8.0) Ur Specific [place] (1.001-1.035) Urine Protein (Negative) Urine Glucose (UA) (Negative) Urine Ketones (Negative) Urine Blood (Negative) Urine Nitrite (Negative) Urine Bilirubin (Negative) Urine Urobilinogen (<2.0) mg/dL Ur Leukocyte Esterase (Negative) Urine RBC (0-5) /hpf Urine WBC (0-5) /hpf Ur Squamous Epith Cells (0-4) /hpf Urine Mucus (None) /hpf Blood Type A Positive Blood Type Recheck A Pos Bld Type Recheck Status [facility] ONLY 11/17/23 11/17/23 11/17/23 Range/Units 17:26 17:26 17:26 WBC (3.8-10.6) k/uL RBC (3.80-5.40) m/uL Hgb (11.4-16.0) gm/dL Hct (34.0-46.0) % MCV (80.0-100.0) fL MCH (25.0-35.0) pg MCHC (31.0-37.0) g/dL RDW (11.5-15.5) % Plt Count (150-450) k/uL MPV Neutrophils % % Lymphocytes % % Monocytes % % Eosinophils % % Basophils % % Neutrophils # (1.3-7.7) k/uL Lymphocytes # (1.0-4.8) k/uL Monocytes # (0-1.0) k/uL Eosinophils # (0-0.7) k/uL Basophils # (0-0.2) k/uL PT 10.1 (10.0-12.5) sec INR 0.9 (<1.2) APTT 23.8 (22.0-30.0) sec Sodium (137-145) mmol/L Potassium (3.5-5.1) mmol/L Chloride (98-107) mmol/L Carbon Dioxide (22-30) mmol/L Anion Gap mmol/L BUN (7-17) mg/dL Creatinine (0.52-1.04) mg/dL Est GFR (CKD-EPI)AfAm (>60 ml/min/1.73 sqM) Est GFR (CKD-EPI)NonAf (>60 ml/min/1.73 sqM) Glucose (74-99) mg/dL Plasma Lactic Acid Christiano 1.3 (0.7-2.0) mmol/L Calcium (8.4-10.2) mg/dL Total Bilirubin (0.2-1.3) mg/dL AST (14-36) U/L ALT (4-34) U/L Alkaline Phosphatase (38-126) U/L Troponin I <0.012 (0.000-0.034) ng/mL Total Protein (6.3-8.2) g/dL Albumin (3.5-5.0) g/dL Lipase (23-300) U/L HCG, Quant mIU/mL Urine Color Urine Appearance (Clear) Urine pH (5.0-8.0) Ur Specific [place] (1.001-1.035) Urine Protein (Negative) Urine Glucose (UA) (Negative) Urine Ketones (Negative) Urine Blood (Negative) Urine Nitrite (Negative) Urine Bilirubin (Negative) Urine Urobilinogen (<2.0) mg/dL Ur Leukocyte Esterase (Negative) Urine RBC (0-5) /hpf Urine WBC (0-5) /hpf Ur Squamous Epith Cells (0-4) /hpf Urine Mucus (None) /hpf Blood Type Blood Type Recheck Bld Type Recheck Status 11/17/23 Range/Units 18:05 WBC (3.8-10.6) k/uL RBC (3.80-5.40) m/uL Hgb (11.4-16.0) gm/dL Hct (34.0-46.0) % MCV (80.0-100.0) fL MCH (25.0-35.0) pg MCHC (31.0-37.0) g/dL RDW (11.5-15.5) % Plt Count (150-450) k/uL MPV Neutrophils % % Lymphocytes % % Monocytes % % Eosinophils % % Basophils % % Neutrophils # (1.3-7.7) k/uL Lymphocytes # (1.0-4.8) k/uL Monocytes # (0-1.0) k/uL Eosinophils # (0-0.7) k/uL Basophils # (0-0.2) k/uL PT (10.0-12.5) sec INR (<1.2) APTT (22.0-30.0) sec Sodium (137-145) mmol/L Potassium (3.5-5.1) mmol/L Chloride (98-107) mmol/L Carbon Dioxide (22-30) mmol/L Anion Gap mmol/L BUN (7-17) mg/dL Creatinine (0.52-1.04) mg/dL Est GFR (CKD-EPI)AfAm (>60 ml/min/1.73 sqM) Est GFR (CKD-EPI)NonAf (>60 ml/min/1.73 sqM) Glucose (74-99) mg/dL Plasma Lactic Acid Christiano (0.7-2.0) mmol/L Calcium (8.4-10.2) mg/dL Total Bilirubin (0.2-1.3) mg/dL AST (14-36) U/L ALT (4-34) U/L Alkaline Phosphatase (38-126) U/L Troponin I (0.000-0.034) ng/mL Total Protein (6.3-8.2) g/dL Albumin (3.5-5.0) g/dL Lipase (23-300) U/L HCG, Quant mIU/mL Urine Color Light Yellow Urine Appearance Cloudy H (Clear) Urine pH 7.0 (5.0-8.0) Ur Specific [place] 1.020 (1.001-1.035) Urine Protein Trace H (Negative) Urine Glucose (UA) Negative (Negative) Urine Ketones Negative (Negative) Urine Blood Negative (Negative) Urine Nitrite Negative (Negative) Urine Bilirubin Negative (Negative) Urine Urobilinogen 3.0 (<2.0) mg/dL Ur Leukocyte Esterase Small H (Negative) Urine RBC <1 (0-5) /hpf Urine WBC 2 (0-5) /hpf Ur Squamous Epith Cells 16 H (0-4) /hpf Urine Mucus Occasional H (None) /hpf Blood Type Blood Type Recheck Bld Type Recheck Status Disposition <Marine Whitmore - Last Filed: 11/17/23 15:18> Is patient prescribed a controlled substance at d/c from ED?: No Time of Disposition: 19:05 <Liane Jones - Last Filed: 11/18/23 21:05> Clinical Impression: Abdominal pain during , Subchorionic hematoma Disposition: HOME SELF-CARE Condition: Good Instructions (If sedation given, give patient instructions): Abdominal Pain in (ED) Additional Instructions: Return to the emergency department for any new or worsening symptoms. Continue pelvic rest and follow-up as scheduled with your OB provider. Referrals: Nonstaff,Physician [Primary Care Provider] - 1-2 days
[2023-11-17 15:31] VITALS: TEMP 99.3
--- NOTE | 2023-11-17 16:08 | US ---
EXAMINATION TYPE: Transabdominal DATE OF EXAM: 11/17/2023 3:51 PM COMPARISON: NONE CLINICAL INDICATION: Female, 23 years old with history of abdominal pain in ; Pelvic pain EXAM PERFORMED: Transabdominal (TA) EXAM MEASUREMENTS: GESTATIONAL AGE / DATING Physician Established: Not yet established Dates by LMP: (9 weeks/1 days) EDC: 06/20/2024 Dates by First Scan: No previous this is first scan Dates by Current Scan for: ( 7 weeks/1 days) EDC: 07/04/2024 MATERNAL ANATOMY Uterus: 11.8 x 5.4 x 7.7cm Right Ovary: 3.6 x 2.2 x 3.1cm Left Ovary: 2.5 x 1.1 x 2.5cm Post CDS / Adnexa: wnl Presence of free fluid: no Presence of corpus luteal cyst: right ovary - 2.6 x 1.3 x 2.1cm Presence of subchorionic bleed: 1.5 x 1.3 x 3.0cm inferior to gestational sac GESTATION / SURVEY CRL: 1.0cm (7 weeks/1 days) MSD:) Yolk Sac (normal less than 6mm): 3.4mm Heart Rate: 146 bpm Rhythm: Normal IUP: Viable IUP Date of LMP: 09/13/2024 Beta HcG (if available): Not available at time of exam IMPRESSION: 1. Single viable intrauterine as described above. 2. Small subchorionic bleed as described above.
--- NOTE | 2023-11-17 16:27 | XR ---
EXAMINATION TYPE: XR chest 2V DATE OF EXAM: 11/17/2023 COMPARISON: NONE HISTORY: Chest pain TECHNIQUE: Frontal and lateral views of the chest are obtained. FINDINGS: There is no focal air space opacity, pleural effusion, or pneumothorax seen. The cardiac silhouette size is within normal limits. The osseous structures are intact. IMPRESSION: No acute cardiopulmonary process.
[2023-11-17 17:46] LABS: Basophils # (A) 0.1 k/uL (0-0.2); Basophils % (A) 1 %; Eosinophils # (A) 0.3 k/uL (0-0.7); Eosinophils % (A) 3 %; HCT 35.5 % (34.0-46.0); HGB 12.2 gm/dL (11.4-16.0); Lymphocytes # (A) 2.1 k/uL (1.0-4.8); Lymphocytes % (A) 24 %; MCH 29.3 pg (25.0-35.0); MCHC 34.2 g/dL (31.0-37.0); MCV 85.7 fL (80.0-100.0); Mean Platelet Volume 7.3; Monocytes # (A) 0.4 k/uL (0-1.0); Monocytes % (A) 4 %; Neutrophils # (A) 5.9 k/uL (1.3-7.7); Neutrophils % (A) 66 %; Platelet Count 368 k/uL (150-450); RBC 4.15 m/uL (3.80-5.40); RDW 14.7 % (11.5-15.5); WBC 8.8 k/uL (3.8-10.6)
[2023-11-17 17:55] LABS: INR 0.9 (<1.2); Partial Thromboplastin Time 23.8 sec (22.0-30.0); Prothrombin Time 10.1 sec (10.0-12.5)
[2023-11-17 18:12] LABS: ALT 13 U/L (4-34); AST 24 U/L (14-36); African American GFR (CKD) >90 (>60 ml/min/1.73 sqM); Albumin 4.5 g/dL (3.5-5.0); Alkaline Phosphatase 51 U/L (38-126); Anion Gap 10 mmol/L; Blood Urea Nitrogen 9 mg/dL (7-17); Calcium 9.3 mg/dL (8.4-10.2); Carbon Dioxide 21 mmol/L (22-30); Chloride 107 mmol/L (98-107); Glucose 83 mg/dL (74-99); Lipase 62 U/L (23-300); Non-African American GFR(CKD) >90 (>60 ml/min/1.73 sqM); Potassium 3.8 mmol/L (3.5-5.1); Sodium 138 mmol/L (137-145); Total Bilirubin 0.6 mg/dL (0.2-1.3); Total Protein 7.2 g/dL (6.3-8.2)
[2023-11-17 18:20] LABS: Appearance,Urine Cloudy (Clear); Bilirubin,Urine Negative (Negative); Blood,Urine Negative (Negative); Color,Urine Light Yellow; Glucose,Urine (UA) Negative (Negative); Ketones,Urine Negative (Negative); Leukocyte Esterase,Urine Small (Negative); Mucus,Urine Occasional /hpf; Nitrite,Urine Negative (Negative); Protein,Urine Trace (Negative); RBC,Urine <1 /hpf (0-5); Squamous Epithelial Cell,Urine 16 /hpf (0-4); WBC,Urine 2 /hpf (0-5)
[2023-11-17 18:54] LABS: HCG,Quantitative Serum 70770.7 mIU/mL
[2023-11-17 19:54] VITALS: BP 125/70; PULSE 86; RESP 18
== END 2023-11-17 20:04 | disposition home or self-care (01) ==
LOC: EC 14:53
DX: O26.891 Other specified pregnancy related conditions, first trimester (principal); S30.1XXA Contusion of abdominal wall, initial encounter; O9A.211 Injury, poisoning and certain other consequences of external causes complicating pregnancy, first trimester; Z88.5 Allergy status to narcotic agent; Z3A.09 9 weeks gestation of pregnancy; X58.XXXA Exposure to other specified factors, initial encounter
CPT/HCPCS: 36415; 71046; 76801; 80053; 81001; 83605; 83690; 84484; 84702; 85025; 85610; 85730; 86900; 86901; 93005; 99284

== ENCOUNTER → 2024-06-28 | Outpatient (CLI) | payer OTHER ==
--- NOTE | 2024-06-28 21:31 | US ---
EXAMINATION TYPE: US pelvic complete DATE OF EXAM: 06/28/2024 COMPARISON: 06/03/2017 CLINICAL INDICATION: , 23 years old with history of N94.10 DYSPAREUNIA; UTI like symptoms without inf ection since miscarriage in november. Patient denies any other signs, symptoms, or relevant history TECHNIQUE: Transabdominal (TA). Transabdominal grayscale sonographic images of the pelvis were acquired. Transvaginal sonographic im ages were medically necessary to better assess the following anatomy: Doppler imaging: Not performed. FINDINGS: Date of LMP: 06/02/2024 EXAM MEASUREMENTS: Uterus: 9.0 x 4.7 x 6.6 cm Endometrial Stripe: 1.3 cm Right Ovary: 2.4 x 1.8 x 2.9 cm Left Ovary: 4.5 x 2.1 x 2.8 cm 1. Uterus: Anteverted ? lesion seen anterior uterus indenting endometrium = 2.5 x 2.1 x 2.5 cm 2. Endometrium: Fluid within 3. Right Ovary: wnl 4. Left Ovary: ? normal ovarian tissue vs lesion vs cyst with debris = 2.0 x 1.5 x 1.6 cm 5. Bilateral Adnexa: wnl 6. Posterior cul-de-sac: wnl IMPRESSION: 1. No evidence for acute process. 2. Submucosal fibroid versus large intramural fibroid noted. 3. Left ovarian lesion which could be further evaluated with pelvic MRI if clinically warranted. Fin ding likely represents an involuting follicle/hemorrhagic follicle. [facility], , 06/28/2024 9:29 PM
== END | disposition home or self-care (01) ==
LOC: RADUSWWP 15:58
PROVIDERS: ATTEND Student in an Organized Health Care Education/Training Program
DX: N94.10 Unspecified dyspareunia (principal); N83.9 Noninflammatory disorder of ovary, fallopian tube and broad ligament, unspecified
CPT/HCPCS: 76856

== ENCOUNTER → 2024-11-12 | Outpatient (CLI) | payer OTHER ==
[2024-11-12 18:20] LABS: Basophils # (A) 0.05 X 10*3/uL (0.00-0.10); Basophils % (A) 0.8 %; Eosinophils # (A) 0.14 X 10*3/uL (0.04-0.35); Eosinophils % (A) 2.1 %; HCT 40.6 % (37.2-46.3); HGB 13.4 g/dL (12.0-15.0); Immature Grans, Automated 0.30 %; Lymphocytes # (A) 2.42 X 10*3/uL (0.90-5.00); Lymphocytes % (A) 37.1 %; MCH 29.5 pg (27.0-32.0); MCHC 33.0 g/dL (32.0-37.0); MCV 89.4 FL (80.0-97.0); Monocytes # (A) 0.40 X 10*3/uL (0.20-1.00); Monocytes % (A) 6.1 %; NRBC Per 100 WBC 0 X 10*3/uL (0.00-0.01); Neutrophils # (A) 3.49 X 10*3/uL (1.80-7.70); Neutrophils % (A) 53.6 %; Platelet Count 334 X 10*3/uL (140-440); RBC 4.54 X 10*6/uL (4.10-5.20); RDW 13.1 % (11.5-14.5); WBC 6.52 X 10*3/uL (4.50-10.00)
[2024-11-12 22:28] LABS: ALT 24 U/L (8-44); AST 27 U/L (13-35); Albumin 4.2 g/dL (3.8-4.9); Albumin/Globulin Ratio 1.50 Ratio (1.60-3.17); Alkaline Phosphatase 63 U/L (41-126); Anion Gap 23.20 mmol/L (4.00-12.00); BUN/Creat Ratio 16.50 Ratio (12.00-20.00); Blood Urea Nitrogen 9.9 mg/dL (9.0-27.0); Calcium 7.7 mg/dL (8.7-10.3); Carbon Dioxide 13.8 mmol/L (21.6-31.8); Chloride 102 mmol/L (96-109); Globulin 2.8 g/dL (1.6-3.3); Glucose 80 mg/dL (70-110); Magnesium 1.9 mg/dL (1.5-2.4); Potassium 4.4 mmol/L (3.5-5.5); Rheumatoid Factor, Qnt <15 IU/mL (0-15); Sodium 139 mmol/L (135-145); Total Protein 7.0 g/dL (6.2-8.2); Vitamin B12 221.0 pg/mL (200.0-944.0)
[2024-11-15 14:48] LABS: APTT 43 Sec(s) (<43); Dilute Russell Viper Venom 38 Sec(s) (<44)
== END | disposition home or self-care (01) ==
LOC: LABWHC1 11:47
PROVIDERS: ATTEND Nurse Practitioner Family
DX: G43.011 Migraine without aura, intractable, with status migrainosus (principal); M25.50 Pain in unspecified joint; R53.83 Other fatigue
CPT/HCPCS: 36415; 80053; 82607; 83735; 84443; 85025; 85613; 85730; 86038; 86140; 86376; 86431; 86618